=== PATIENT | male | born 1945 | race Caucasian/White ===

== ENCOUNTER 2017-02-12 11:31 | Emergency (ER) | payer MEDICARE, OTHER ==
[2017-02-12 11:42] VITALS: BP 142/82
--- NOTE | 2017-02-12 11:45 | ED Physician Documentation ---
PD HPI UPPER EXT INJURY - Stated complaint Stated Complaint: RT FINGER PX - Chief complaint Chief Complaint: General - History obtained from History obtained from: Patient - History of Present Illness Location: Left, Finger (right thumb) PD PAST MEDICAL HISTORY - Past Medical History Past Medical History: No - Past Surgical History Past Surgical History: No - Present Medications Home Medications: Ambulatory Orders Medication Instructions Recorded Confirmed Mupirocin 1 applic TP TID #15 oint...g. 02/12/17 Sulfamethox/Trimeth 800/160 1 each PO BID #14 tablet 02/12/17 [Bactrim Ds 800/160] - Allergies Allergies/Adverse Reactions: Allergies Allergy/AdvReac Type Severity Reaction Status Date / Time No Known Drug Allergies Allergy Verified 02/12/17 11:41 - Social History Does the pt smoke?: No Smoking Status: Never smoker Does the pt drink ETOH?: Yes Does the pt have substance abuse?: No - Immunizations Immunizations are current?: Yes PD ED PE NORMAL - Vitals Vital signs reviewed: Yes - General General: Alert and oriented X 3, No acute distress, Well developed/nourished - Derm Derm: Normal color, Warm and dry - Extremities Extremities: Other (right index finger with hemorrhagic superficial blisters on dorsum. no proximal streaking.) - Neuro Neuro: Alert and oriented X 3, No motor deficit, No sensory deficit Results - Vitals Vitals: Vital Signs - 24 hr 02/12/17 11:35 Temperature 36.1 C L Heart Rate 62 Respiratory 18 Rate Blood Pressure 142/82 H O2 Saturation 96 Oxygen O2 Source Room air PD MEDICAL DECISION MAKING - ED course Complexity details: considered differential (looks like infection to his small lac. Will treat as likely staff. Culture obtained from blister lesion. ), d/w patient Departure - Departure Disposition: 01 Home, Self Care Clinical Impression: Wound infection Condition: Stable Record reviewed to determine appropriate education?: Yes Instructions: ED Staph Infec Abx Tx Only Prescriptions: Sulfamethox/Trimeth 800/160 [Bactrim Ds 800/160] 1 each PO BID #14 tablet Mupirocin 1 applic TP TID #15 oint...g. Comments: This is most likely to be a staph infection and will treat it that way initially. Bactrim twice daily for a week and mupirocin topically 2-3 times a day. Cleanse wound 2-3 times a day and then apply the ointment. Recheck if not improving over the next couple of days. We did do a wound culture that will tell us if it is a different bacteria and what antibiotic to use. The results of this will be available in 2-3 days. Tylenol or ibuprofen if needed for pains. Discharge Date/Time: 02/12/17 12:35
[2017-02-12] MEDS ORDERED: MUPIROCIN 2% OINT 1 GM TOP STA (12:09)
[2017-02-12] MEDS ORDERED: SULFAMETH/TRIMETH DS 800/160 MG TABLET PO STA (12:09)
[2017-02-12] MEDS ORDERED: MUPIROCIN 2% OINT 1 GM ONE (12:27)
== END 2017-02-12 12:35 | disposition home or self-care (01) ==
LOC: ED 11:31
DX: S61.011A Laceration without foreign body of right thumb without damage to nail, initial encounter (principal); L08.9 Local infection of the skin and subcutaneous tissue, unspecified; X58.XXXA Exposure to other specified factors, initial encounter
CPT/HCPCS: 87070; 87205; 99281; 99283; A9270

== ENCOUNTER 2017-02-27 10:13 | Emergency (ER) | payer MEDICARE, OTHER ==
[2017-02-27 10:22] VITALS: BP 115/68
--- NOTE | 2017-02-27 10:35 | ED Physician Documentation ---
PD HPI SKIN - Stated complaint Stated Complaint: FINGER PX - Chief complaint Chief Complaint: Wound - History obtained from History obtained from: Patient - History of Present Illness Timing - onset: How many days ago (2-3) Timing - duration: Days (2-3 days of redness and swelling again. Had similar about 2 weeks ago and was treated in ED with Bactrim for concern of local staph infection. He says it mostly healed except for small scab at center. It has recurred again the past few days same area. It is not tender.) Timing - details: Gradual onset Location: RUE (thumb dorsum) Quality / character: Painful, Discolored (red), Swelling. No: Vesicular, Draining Associated symptoms: No: Fever, N/V/D Similar symptoms before: Has not had sx before Recently seen: Emergency Dept Review of Systems Constitutional: denies: Fever, Chills GI: denies: Nausea, Vomiting PD PAST MEDICAL HISTORY - Past Medical History Endocrine/Autoimmune: None Musculoskeletal: None - Past Surgical History Past Surgical History: No - Present Medications Home Medications: Ambulatory Orders Medication Instructions Recorded Confirmed Mupirocin 1 applic TP TID #15 oint...g. 02/12/17 Sulfamethox/Trimeth 800/160 1 each PO BID #14 tablet 02/12/17 [Bactrim Ds 800/160] Doxycycline Hyclate 100 mg PO BID #14 tablet 02/27/17 Mupirocin 1 applic TP TID #15 oint...g. 02/27/17 - Allergies Allergies/Adverse Reactions: Allergies Allergy/AdvReac Type Severity Reaction Status Date / Time No Known Drug Allergies Allergy Verified 02/27/17 10:22 - Social History Does the pt smoke?: No Smoking Status: Never smoker Does the pt drink ETOH?: Yes Does the pt have substance abuse?: No - Immunizations Immunizations are current?: Yes PD ED PE NORMAL - Vitals Vital signs reviewed: Yes - General General: Alert and oriented X 3, No acute distress, Well developed/nourished - Derm Derm: Normal color, Warm and dry, Other (right thumb dorsum proximal phalanx with patch of red/ swelling without drainage. No fluctuance. No bony tenderness. ) - Neuro Neuro: No motor deficit, No sensory deficit Results - Vitals Vitals: Vital Signs - 24 hr 02/27/17 10:18 Temperature 35.8 C L Heart Rate 65 Respiratory 14 Rate Blood Pressure 115/68 O2 Saturation 100 Oxygen O2 Source Room air PD MEDICAL DECISION MAKING - ED course Complexity details: considered differential (recurrent wound infection mostly cleared with Bactrim previously and now back. Culture was negative but had been minimal fluid from wound at time of culture, so potential false negative. Still concerning for staph/bacterial. Does not look like Ritesh and should be gone anyway if were. Not tender/deeper appearing for concern of osteo as source. Will try Doxy. If persists/recurrent, then would need ESR/CRP/MRI? to see if bone source.), d/w patient Departure - Departure Disposition: 01 Home, Self Care Clinical Impression: Wound infection Condition: Stable Record reviewed to determine appropriate education?: Yes Prescriptions: Doxycycline Hyclate 100 mg PO BID #14 tablet Mupirocin 1 applic TP TID #15 oint...g. Comments: I think it still looks like a local infection and since it did improve with the first course of antibiotics though not completely, I would try a different antibiotic for it. The skin culture we did on the first visit did not grow any bacteria so this does not give us any guidance and does not preclude an infection under the skin since there was not really much drainage at the time of the culture. Continue cleaning it with soap and water and applying mupirocin ointment. Use doxycycline antibiotic twice daily for a week this time. Warm soaks to the finger 2-3 times a day before applying the ointment. Recheck if not better over the next week or so. Discharge Date/Time: 02/27/17 11:00
== END 2017-02-27 11:00 | disposition home or self-care (01) ==
LOC: ED 10:13
DX: L08.89 Other specified local infections of the skin and subcutaneous tissue (principal)
CPT/HCPCS: 99283